=== PATIENT | female | born 1980 | race Asian ===

== ENCOUNTER 2022-11-30 16:42 | Emergency (ER) | payer OTHER ==
[2022-11-30 18:15] LABS: BASO # 0.1 10^3/uL (0.0-0.2); BASO % 0.4 % (0.0-1.0); EOS # 0.2 10^3/uL (0.0-0.5); EOS % 1.3 % (0.0-3.0); HEMATOCRIT 41.7 % (36.0-47.0); HEMOGLOBIN 14.1 g/dl (12.0-15.5); LYMPH # 2.6 10^3/uL (1.5-5.0); LYMPH % 20.5 % (24.0-44.0); MEAN CORPUSCULAR HEMOGLOBIN 29.1 pg (27.0-33.0); MEAN CORPUSCULAR HGB CONC 33.8 g/dl (32.0-36.5); MONO # 0.7 10^3/uL (0.0-0.8); MONO % 5.6 % (2.0-8.0); NEUTROPHILS # 9.1 10^3/uL (1.5-8.5); NEUTROPHILS % 71.8 % (36.0-66.0); PLATELET COUNT, AUTOMATED 364 10^3/uL (150-450); RED BLOOD COUNT 4.85 10^6/uL (4.00-5.40); WHITE BLOOD COUNT 12.7 10^3/uL (4.0-10.0)
[2022-11-30 18:26] LABS: INR 0.93; PROTHROMBIN TIME 12.7 SECONDS (12.5-14.5)
[2022-11-30 18:27] LABS: PARTIAL THROMBOPLASTIN TIME 25.9 SECONDS (24.8-34.2)
[2022-11-30 18:39] LABS: URIC ACID 5.4 MG/DL (3.1-7.8)
[2022-11-30 18:42] LABS: ALBUMIN 3.7 G/DL (3.2-5.2); ALKALINE PHOSPHATASE 102 U/L (46-116); ALT/SGPT 27 U/L (7.0-40); AST/SGOT 28 U/L (<34); BILIRUBIN,DIRECT 0.1 MG/DL (<0.4); BILIRUBIN,TOTAL 0.5 MG/DL (0.3-1.2); BLOOD UREA NITROGEN 11 MG/DL (9-23); CARBON DIOXIDE LEVEL 28 MMOL/L (20-31); CHLORIDE LEVEL 104 MMOL/L (98-107); CREATININE FOR GFR 0.59 MG/DL (0.55-1.30); GLOMERULAR FILTRATION RATE > 60.0 (>58); GLUCOSE, FASTING 126 MG/DL (60-100); MAGNESIUM LEVEL 1.7 MG/DL (1.8-2.4); POTASSIUM SERUM 3.8 MMOL/L (3.5-5.1); SODIUM LEVEL 137 MMOL/L (136-145); TOTAL PROTEIN 7.2 G/DL (5.7-8.2)
[2022-11-30 20:08] LABS: CK-MB VALUE MASS < 1.0 NG/ML (<3.6)
[2022-11-30 20:09] LABS: HCG, SERUM QUANTITATIVE 624.9 MIU/ML (<4.2)
[2022-11-30 20:10] LABS: CPK CREATINE PHOSPHOKINASE 255 U/L (34-145); MB/CK RELATIVE INDEX 0.39 (< OR =4)
[2022-11-30] MEDS ORDERED: LABETALOL 100MG/20ML VIAL IV STA ×2 (20:19→21:34)
[2022-11-30] MEDS ORDERED: NS 1,000 ML IV ONE (20:20)
[2022-11-30 21:54] LABS: RSV AMPLIFICATION NEGATIVE (NEGATIVE)
[2022-11-30] MEDS ORDERED: LABETALOL 200 MG TAB PO ONE (22:25)
[2022-11-30 22:40] VITALS: BP 167/96
[2022-11-30 23:05] LABS: CK-MB VALUE MASS < 1.0 NG/ML (<3.6)
[2022-11-30 23:09] LABS: CPK CREATINE PHOSPHOKINASE 199 U/L (34-145)
[2022-11-30 23:49] VITALS: BP 138/71
[2022-11-30] MEDS ORDERED: LABE200T5 PO (23:51)
[2022-12-01] MEDS ORDERED: ONDANSETRON 4MG 2ML VIAL IV ONE
== END 2022-12-01 00:11 | disposition home or self-care (01) ==
LOC: M ED 16:42
DX: O26.851 Spotting complicating pregnancy, first trimester (principal); O13.1 Gestational [pregnancy-induced] hypertension without significant proteinuria, first trimester; R00.0 Tachycardia, unspecified; Z79.810 Long term (current) use of selective estrogen receptor modulators (SERMs); Z3A.09 9 weeks gestation of pregnancy
CPT/HCPCS: 76801; 76817; 80048; 80076; 81001; 82550; 82553; 83735; 84484; 84550; 84702; 85025; 85379; 85384; 85610; 85730; 86850; 86900; 86901; 87631; 93005; 93976; 96374; 96375; 99284; J2405

== ENCOUNTER 2022-12-01 14:30 | Emergency (ER) | payer OTHER ==
[~2022-12-01] VITALS: Ht 170.2 cm; Wt 113.0 kg
[~2022-12-01 14:30] MED LIST: LABE200T5 PO
[2022-12-01 16:31] VITALS: BP 127/79
== END 2022-12-01 18:14 | disposition home or self-care (01) ==
LOC: M ED 14:30
DX: O16.1 Unspecified maternal hypertension, first trimester (principal); Z3A.09 9 weeks gestation of pregnancy; Z79.810 Long term (current) use of selective estrogen receptor modulators (SERMs)